=== PATIENT | male | born 1970 ===

== ENCOUNTER 2018-11-19 08:45 | Outpatient (RCR) | payer OTHER | END 2018-11-25 | disposition home or self-care (01) | LOC: WSC | DX: M54.5 Low back pain (principal) ==

== ENCOUNTER 2020-08-24 18:12 | Emergency (ER) | payer OTHER ==
[~2020-08-24] VITALS: Ht 175.3 cm; Wt 77.3 kg
[2020-08-24 18:18] VITALS: TEMP 97.4
[2020-08-24 19:02] VITALS: BP 143/95; PULSE 86
== END 2020-08-24 19:02 | disposition home or self-care (01) ==
LOC: COL.ER 18:12
DX: T23.202A Burn of second degree of left hand, unspecified site, initial encounter (principal); X08.8XXA Exposure to other specified smoke, fire and flames, initial encounter; Y92.009 Unspecified place in unspecified non-institutional (private) residence as the place of occurrence of the external cause